=== PATIENT | female | born 1945 ===

== ENCOUNTER 2021-03-03 10:00 | Inpatient (IN) | payer OTHER ==
[~2021-03-03] VITALS: Ht 165.1 cm; Wt 65.8 kg
[2021-03-03] MEDS ORDERED: TOPROL XL25 M1 PO (13:02)
[2021-03-06] MEDS ORDERED: OMEPRAZOLE40 MG (13:57)
[2021-03-06] MEDS ORDERED: FAMOTIDINE20 MG (13:57)
== END 2021-03-07 13:42 | disposition home or self-care (01) | DRG 742 ==
LOC: OB/GYN 03-06 10:00 → SURH 03-06 11:00 → O/R 03-06 11:00 → SURH 03-06 19:21 → OB/GYN 03-06 21:15 → SURH 03-07 13:42
PROVIDERS: Surgery; ADMIT Obstetrics & Gynecology Gynecologic Oncology; ATTEND Obstetrics & Gynecology Gynecologic Oncology
PROC: 0UT24ZZ Resection of Bilateral Ovaries, Percutaneous Endoscopic Approach (ICD-10-PCS; 2021-03-06)
PROC: 0UT74ZZ Resection of Bilateral Fallopian Tubes, Percutaneous Endoscopic Approach (ICD-10-PCS; 2021-03-06)
PROC: 07BC4ZZ Excision of Pelvis Lymphatic, Percutaneous Endoscopic Approach (ICD-10-PCS; 2021-03-06)
PROC: BF53200 Other Imaging of Gallbladder and Bile Ducts using Fluorescing Agent, Indocyanine Green Dye, Intraoperative (ICD-10-PCS; 2021-03-06)
PROC: 0UT94ZZ Resection of Uterus, Percutaneous Endoscopic Approach (ICD-10-PCS; principal; 2021-03-06 21:15)
PROC: 0FT44ZZ Resection of Gallbladder, Percutaneous Endoscopic Approach (ICD-10-PCS; 2021-03-06 21:15)
DX: D25.1 Intramural leiomyoma of uterus (principal); K80.10 Calculus of gallbladder with chronic cholecystitis without obstruction; D25.2 Subserosal leiomyoma of uterus; N80.0 Endometriosis of uterus; N83.312 Acquired atrophy of left ovary; N83.311 Acquired atrophy of right ovary